=== PATIENT | female | born 1970 | race Caucasian/White ===

== ENCOUNTER 2016-09-30 08:14 | Emergency (ER) | payer OTHER ==
[~2016-09-30] VITALS: Ht 165.1 cm; Wt 115.5 kg
[~2016-09-30 08:14] MED LIST: AMLO-147 PO; ATEN-51 PO; BENA10TA48 PO; CALC200T PO; HYDR-3498 PO; NAPR-260 PO; NAPR-688 PO; TRAM-40 PO; TRAM50TA2 PO
[2016-09-30 08:17] VITALS: Ht 165.1 cm; Wt 115.5 kg
[2016-09-30] MEDS ORDERED: AZIT250T94 PO (08:40)
[2016-09-30] MEDS ORDERED: LORA5SOL5 PO (08:40)
[2016-09-30] MEDS ORDERED: FLUT9.9S NASAL (08:40)
--- NOTE | 2016-09-30 08:48 | ERD ---
ER Documentation Chief Complaint Date/Time DATE: 09/30/16 TIME: 08:45 Chief Complaint DOWLING, COUGH & CONGESTION X3 WKS, NO RELIEF W/OTC HPI Patient is a 46-year-old female who states she has had a cough with nasal congestion for 3 weeks. She has tried xymc-uns-wrqdrlk medications which have not helped. She denies any nausea or vomiting. Denies any chest pain or shortness of breath. Her symptoms are worse at night and the cough and nasal congestion makes it difficult for her to sleep. She thinks she may have had a fever 3 weeks ago when this started however fever has now subsided. Denies any hemoptysis, night sweats, or unplanned weight loss. ROS All systems reviewed and are negative except as per history of present illness. Medications Home Meds Active Scripts Fluticasone Propionate (Flonase Allergy Relief) 9.9 Ml [place].susp, 1 SPRAY NASAL BID, #1 BOTTLE TO EACH NOSTRIL Prov:ALICE RANDALL PA-C 09/30/16 Azithromycin* (Zithromax*) 250 Mg Tablet, 250 MG PO .VICENTE DIRECTED, #6 TAB TAKE 500 MG (2 TABS) THE FIRST DAY THEN 250 MG (1 TAB) DAYS 2-5 Prov:ALICE RANDALL PA-C 09/30/16 Loratadine* (Loratadine* Soln) 5 Mg/5 Ml Solution, 5 MG PO DAILY, #150 ML Prov:ALICE RANDALL PA-C 09/30/16 Hydrocodone Bit-Acetaminophen* ([place]ard*) 5-325 Mg Tab, 1 TAB PO Q6, #7 TAB Prov:MITCHELL MORALES DO 12/31/15 Naproxen* (Naproxen*) 500 Mg Tablet, 500 MG PO BID, #20 TAB Prov:MITCHELL MORALES DO 12/31/15 Tramadol HCl (Tramadol HCl) 50 Mg Tablet, 50 MG PO Q6, #15 TAB Prov:DENEEN SARMIENTO DO 11/10/15 Naproxen* (Naprosyn*) 500 Mg Tablet, 500 MG PO BID Y for PAIN AND/OR INFLAMMATION, #30 TAB Prov:DENEEN SARMIENTO DO 11/10/15 Reported Medications Calcium Carbonate* (Tums*) 500 Mg Tab.chew, 500 MG PO TID, TAB.CHEW 11/10/15 Tramadol Hcl* (Ultram*) 50 Mg Tablet, 50 MG PO Q6H Y for PAIN, TAB 11/10/15 Benazepril Hcl* (Benazepril Hcl*) 10 Mg Tablet, 10 MG PO DAILY, #30 TAB 11/10/15 Atenolol* (Atenolol*) 25 Mg Tablet, 25 MG PO DAILY, #30 TAB 11/10/15 Amlodipine Besylate* (Amlodipine Besylate*) 10 Mg Tablet, 10 MG PO DAILY, #30 TAB 11/10/15 Allergies Allergies: Coded Allergies: No Known Drug Allergies (Verified Allergy, Unknown, 07/03/14) PMhx/Soc History of Surgery: No Anesthesia Reaction: No Hx Neurological Disorder: Yes (cva with r sided deficiets) Hx Respiratory Disorders: No Hx Cardiac Disorders: No Hx Psychiatric Problems: No Hx Miscellaneous Medical Probl: No Hx Alcohol Use: No Hx Substance Use: No Hx Tobacco Use: Yes (10 cig/ day) FmHx Family History: No diabetes Physical Exam Vitals Vital Signs Date Time Temp Pulse Resp B/P Pulse Ox O2 Delivery O2 Flow Rate FiO2 09/30/16 08:17 97.8 78 20 116/66 96 Physical Exam General: well developed, well nourished, alert, nontoxic, no distress Head: normocephalic, atraumatic Neck: Supple, nontender, no lymphadenopathy, no midline tenderness Oropharynx: no tonsilar erythema or edema, uvula midline, no exudates, no kissing tonsils, no drooling Respiratory: Clear to auscaultation bilaterally, speaks in full sentences, no use of accesory muscles or labored breathing, no rales, ronchi, or wheezing Cardiovascular: RRR, No murmurs GI: soft, non tender, non distended, negative murphys sign, negative mcburneys point tenderness, no cva tenderness bilaterally, no rebound or guarding Back: no midline tenderness, no step offs or bony abnormalities, sensation to light touch in tact Procedures/MDM Patient presents with what is most likely viral bronchitis. Her vital signs are stable she is well-appearing and her examination is normal. However symptoms have been going on for over 3 weeks and she has already exhausted several alia-wgl-kthmdog medications including ibuprofen, DayQuil, NyQuil. Therefore I will give her a prescription for a Z-Luis as well as a Flonase nasal inhaler. Low suspicion for pneumonia. Recommended this patient follow up with her primary care doctor within 48 hours or return to the emergency room for any worsening of symptoms. However this time I do believe there is suitable for outpatient management. I answered all their questions and they agreed with the plan and were discharged home. Departure Diagnosis: Primary Impression: Bronchitis Condition: Stable Patient Instructions: Preventing Common Respiratory Infections Additional Instructions: Call your primary care doctor TOMORROW for an appointment during the next 1-2 days.See the doctor sooner or return here if your condition worsens before your appointment time. ALICE RANDALL PA-C Sep 30, 2016 08:48
== END 2016-09-30 09:06 | disposition home or self-care (01) ==
LOC: FTE 08:14
DX: J20.9 Acute bronchitis, unspecified (principal); F17.210 Nicotine dependence, cigarettes, uncomplicated
CPT/HCPCS: 99283

== ENCOUNTER 2017-05-28 11:43 | Emergency (ER) | payer OTHER ==
[~2017-05-28] VITALS: Wt 119.5 kg
[~2017-05-28 11:43] MED LIST changes: +AZIT250T94 PO; +FLUT9.9S NASAL; +LORA5SOL5 PO
--- NOTE | 2017-05-28 12:56 | RADRPT ---
PROCEDURE: XR Ankle. CLINICAL INDICATION: Pain TECHNIQUE: AP, oblique and lateral views of the left ankle were performed. COMPARISON: None. FINDINGS: Three views left ankle demonstrate no displaced fracture. No gross malalignment is seen. The ankle mortise is intact. The bones normally mineralized. There is soft tissue swelling along the latera l malleolus. IMPRESSION: No acute fracture dislocation. RPTAT: HH .Lc Campbell MD, MD Date Time Electronically viewed and signed by .Lc Campbell MD, on 05/28/2017 12:55 .W/
--- NOTE | 2017-05-28 12:59 | RADRPT ---
PROCEDURE: XR Foot. CLINICAL INDICATION: Pain TECHNIQUE: AP, lateral and oblique views of the left foot was obtained. The images were reviewed on a PACS workstation. COMPARISON: None. FINDINGS: Three views of the left foot demonstrate and oblique fracture through proximal phalanx of the fifth digit. This is only seen on the single view and confirmation of point tenderness in this region is r ecommended. Otherwise, no fractures are identified. No gross malalignment is seen. Joint spaces are well preserved. There is no erosions identified. The bones normally mineralized. Soft tissues are un remarkable. IMPRESSION: 1. Probable oblique fracture extending through the proximal phalanx of the fifth toe. This is only seen on the single view, and confirmation for point tenderness in this region is recommended. 2. Otherwise no fracture dislocation is seen RPTAT: HH .Lc Campbell MD, Date Time Electronically viewed and signed by .Lc Campbell MD, MD on 05/28/2017 12:58 .W/
--- NOTE | 2017-05-28 15:23 | RADRPT ---
PROCEDURE: US DVT. CLINICAL INDICATION: Left lower extremity swelling. TECHNIQUE: Multiple longitudinal and transverse images of the left lower extremity veins were obta ined with andre scale and color Doppler imaging. 2D grayscale measurements with compression, color D oppler flow, and augmentation was performed. COMPARISON: None. FINDINGS: The left common femoral, femoral and popliteal veins are patent and fully compressible. Color flow demonstrates normal filling of the vessel lumen. Normal waveforms are visualized and there is andree l response to augmentation. The calf veins are equally normal. IMPRESSION: No evidence of acute deep venous thrombosis of the left lower extremity. RPTAT: AAQQ .Robina Gamboa MD, MD Date Time Electronically viewed and signed by .Robina Gamboa MD, MD on 05/28/2017 15:23 .T/
[2017-05-28] MEDS ORDERED: NAPR-260 PO (15:31)
--- NOTE | 2017-05-28 17:40 | ERD ---
ER Documentation Chief Complaint Chief Complaint left ankle/foot swelling/pain since am HPI Patient is a 46-year-old female with a history of CVA with residual right sided weakness who presents to the ED for concerns of left ankle and foot swelling which the patient noticed that this morning. Patient states 2 weeks ago she did drop a heavy piece of wood onto her foot. Patient states she had minimal swelling however this morning upon waking up she noticed that she had significant swelling. Patient denies any falls. Patient denies any fevers or chills. Patient denies any chest pain, shortness of breath, headache, blurry vision, abdominal pain, nausea, vomiting or LOC. Patient denies any new weaknesses or difficulty speaking. Patient does admit to limited mobility and overall sedentary life since the time of her stroke. ROS All systems reviewed and are negative except as per history of present illness. Medications Home Meds Active Scripts Naproxen* (Naprosyn*) 500 Mg Tablet, 500 MG PO BID Y for PAIN AND/OR INFLAMMATION, #30 TAB Prov:DEANA WILKES PA-C 05/28/17 Fluticasone Propionate (Flonase Allergy Relief) 9.9 Ml [place].susp, 1 SPRAY NASAL BID, #1 BOTTLE TO EACH NOSTRIL Prov:ALICE RANDALL PA-C 09/30/16 Azithromycin* (Zithromax*) 250 Mg Tablet, 250 MG PO .VICENTE DIRECTED, #6 TAB TAKE 500 MG (2 TABS) THE FIRST DAY THEN 250 MG (1 TAB) DAYS 2-5 Prov:ALICE RANDALL PA-C 09/30/16 Loratadine* (Loratadine* Soln) 5 Mg/5 Ml Solution, 5 MG PO DAILY, #150 ML Prov:ALICE RANDALL PA-C 09/30/16 Hydrocodone Bit-Acetaminophen* ([place]*) 5-325 Mg Tab, 1 TAB PO Q6, #7 TAB Prov:MITCHELL MORALES DO 12/31/15 Naproxen* (Naproxen*) 500 Mg Tablet, 500 MG PO BID, #20 TAB Prov:MITCHELL MORALES DO 12/31/15 Tramadol HCl (Tramadol HCl) 50 Mg Tablet, 50 MG PO Q6, #15 TAB Prov:DENEEN SARMIENTO DO 11/10/15 Naproxen* (Naprosyn*) 500 Mg Tablet, 500 MG PO BID Y for PAIN AND/OR INFLAMMATION, #30 TAB Prov:DENEEN SARMIENTO DO 11/10/15 Reported Medications Calcium Carbonate* (Tums*) 500 Mg Tab.chew, 500 MG PO TID, TAB.CHEW 11/10/15 Tramadol Hcl* (Ultram*) 50 Mg Tablet, 50 MG PO Q6H Y for PAIN, TAB 11/10/15 Benazepril Hcl* (Benazepril Hcl*) 10 Mg Tablet, 10 MG PO DAILY, #30 TAB 11/10/15 Atenolol* (Atenolol*) 25 Mg Tablet, 25 MG PO DAILY, #30 TAB 11/10/15 Amlodipine Besylate* (Amlodipine Besylate*) 10 Mg Tablet, 10 MG PO DAILY, #30 TAB 11/10/15 Allergies Allergies: Coded Allergies: No Known Drug Allergies (Verified Allergy, Unknown, 07/03/14) PMhx/Soc History of Surgery: No Anesthesia Reaction: No Hx Neurological Disorder: Yes (cva with r sided deficit) Hx Respiratory Disorders: No Hx Cardiac Disorders: No Hx Psychiatric Problems: No Hx Miscellaneous Medical Probl: No Hx Alcohol Use: No Hx Substance Use: No Hx Tobacco Use: Yes (10 cig/ day) Smoking Status: Current some day smoker FmHx Family History: No diabetes Physical Exam Vitals Vital Signs Date Time Temp Pulse Resp B/P Pulse Ox O2 Delivery O2 Flow Rate FiO2 05/28/17 11:50 97.7 84 20 123/67 97 Physical Exam GENERAL: Well-developed, well-nourished female. Appears in no acute distress. HEAD: Normocephalic, atraumatic. EYES: Pupils are equally reactive bilaterally. EOMs grossly intact. No conjunctival erythema. ENT: Moist mucous membranes. No uvula deviation. No kissing tonsils. NECK: Supple. No meningismus. Normal range of motion of the neck. LUNG: Clear to auscultation bilaterally. No rhonchi, wheezing, rales or coarse breath sounds. HEART: Regular rate and rhythm. No murmurs, rubs or gallops. EXTREMITIES: Equal pulses bilaterally. No peripheral clubbing, cyanosis or edema. No unilateral leg swelling. NEUROLOGIC: Alert and oriented. Normal speech. Facial symmetry noted. Patient states this is a chronic finding after her CVA. Right-sided upper and lower extremity weakness noted. Again patient stated this is a chronic finding consistent with previous CVA. SKIN: Normal color. Warm and dry. No rashes or lesions. LEFT FOOT/ANKLE: 1+ swelling noted throughout the patient's lower extremity. No ecchymosis. Swelling noted over the lateral aspect of the ankle. Skin intact. Tender to palpation of the lateral ankle, lateral foot and fifth digit. Sensation intact to light touch. Neurovascularly intact. 2+ DP pulses. Procedures/MDM ED COURSE: The patient was stable throughout ED course. I kept the patient and/or family informed of laboratory and diagnostic imaging results throughout the ED course. DIAGNOSTIC IMAGING: Read by radiologist. Patient: FAISAL STEEN : 1970 Age: 46 Sex: F MR #: [id number] DOS: 05/28/17 1216 Ordering MD: DEANA WILKES PA-C Location: [facility] Room/Bed: PROCEDURE: XR Foot. CLINICAL INDICATION: Pain TECHNIQUE: AP, lateral and oblique views of the left foot was obtained. The images were reviewed on a PACS workstation. COMPARISON: None. FINDINGS: Three views of the left foot demonstrate and oblique fracture through proximal phalanx of the fifth digit. This is only seen on the single view and confirmation of point tenderness in this region is recommended. Otherwise, no fractures are identified. No gross malalignment is seen. Joint spaces are well preserved. There is no erosions identified. The bones normally mineralized. Soft tissues are unremarkable. IMPRESSION: 1. Probable oblique fracture extending through the proximal phalanx of the fifth toe. This is only seen on the single view, and confirmation for point tenderness in this region is recommended. 2. Otherwise no fracture dislocation is seen RPTAT: HH .Lc Campbell MD, Date Time Electronically viewed and signed by .Lc Campbell MD, MD on 05/28/2017 12:58 .W/ CC: DEANA WILKES PA-C Patient: FAISAL STEEN : 1970 Age: 46 Sex: F MR #: [id number] DOS: 05/28/17 1216 Ordering MD: DEANA WILKES PA-C Location: [facility] Room/Bed: PROCEDURE: XR Ankle. CLINICAL INDICATION: Pain TECHNIQUE: AP, oblique and lateral views of the left ankle were performed. COMPARISON: None. FINDINGS: Three views left ankle demonstrate no displaced fracture. No gross malalignment is seen. The ankle mortise is intact. The bones normally mineralized. There is soft tissue swelling along the lateral malleolus. IMPRESSION: No acute fracture dislocation. RPTAT: HH .Lc Campbell MD, Date Time Electronically viewed and signed by .Lc Campbell MD, on 05/28/2017 12:55 .W/ CC: DEANA WILKES PA-C Patient: FAISAL STEEN : 1970 Age: 46 Sex: F MR #: [id number] DOS: 05/28/17 1249 Ordering MD: DEANA WILKES PA-C Location: [facility] Room/Bed: PROCEDURE: US DVT. CLINICAL INDICATION: Left lower extremity swelling. TECHNIQUE: Multiple longitudinal and transverse images of the left lower extremity veins were obtained with andre scale and color Doppler imaging. 2D grayscale measurements with compression, color Doppler flow, and augmentation was performed. COMPARISON: None. FINDINGS: The left common femoral, femoral and popliteal veins are patent and fully compressible. Color flow demonstrates normal filling of the vessel lumen. Normal waveforms are visualized and there is normal response to augmentation. The calf veins are equally normal. IMPRESSION: No evidence of acute deep venous thrombosis of the left lower extremity. RPTAT: AAQQ .Robina Gamboa MD, MD Date Time Electronically viewed and signed by .Robina Gamboa MD, MD on 05/28/2017 15:23 .T/ CC: DEANA WILKES PA-C SPLINT APPLICATION: The patient was verbally consented at bedside prior to splint application. Patient was explained the risks, benefits and alternatives to this procedure. The patient was neurovascularly intact prior to and status post application of the splint. The patient tolerated the procedure well with no complications. Splint type: deon tape Extremity: left Indication: Probable oblique fracture extending through the proximal phalanx of the fifth toe. MEDICATIONS GIVEN: Patient tolerated medication well with no adverse reactions. Patient reported improvement in pain. MEDICAL DECISION MAKING: This is a 46-year-old female with a history of a CVA with residual right-sided weakness who presents to the ED with concerns of left lower leg swelling as well as left ankle pain and foot pain. Patient does report piece of wood falling on her foot 2 weeks ago. Patient states that she only noticed the swelling this morning. Vital signs were reviewed. Patient was afebrile. Patient was not hypoxic. X-ray imaging of the foot showed concerns of the fifth proximal phalanx fracture. Deon tape was placed by remediation technician. Left ankle series was unremarkable except for soft tissue swelling over the lateral malleolus. Doppler study was negative for DVT. At this time, patient presentation is most consistent with toe fracture and lower leg swelling. Patient was advised to elevate her lower extremity. Patient was advised that she will need to follow-up with the assurance specialist and/or obtain an MRI and an outpatient basis given that any ligament and tendon injuries cannot be ruled out this time. Low suspicion for ankle dislocation, tibia fracture, fibula fracture, ankle fracture, tarsal bone fracture, metatarsal fracture, gout , septic joint, DVT, compartment syndrome, plantar fasciitis, CVA. PRESCRIPTIONS: Naproxen DISCHARGE: At this time, patient is stable for discharge and outpatient management. Patient was given a copy of all imaging studies obtained today. RICE therapy and ROM exercises were advised to avoid stiffness. I have instructed the patient to follow-up with his/her primary care physician in 1-2 days. I have discussed with the patient the possibility of needing to see an assurance specialist for further workup and imaging if the pain persists. I have instructed the patient to promptly return to the ER for any new or worsening symptoms including increased pain, swelling, redness, warmth or fever. The patient and/or family expressed understanding of and agreement with this plan. All questions were answered. Home care instructions were provided. Disclaimer: Inadvertent spelling and grammatical errors are likely due to EHR/ dictation software use and do not reflect on the overall quality of patient care. Also, please note that the electronic time recorded on this note does not necessarily reflect the actual time of the patient encounter. Departure Diagnosis: Primary Impression: Toe fracture, left Encounter type: initial encounter Toe: lesser toe Fracture type: closed Phalanx: unspecified phalanx Fracture alignment: nondisplaced Qualified Code : S92.505A - Closed nondisplaced fracture of phalanx of lesser toe of left foot , unspecified phalanx, initial encounter Additional Impression: Left leg swelling Condition: Stable Patient Instructions: Fracture, Toe [Closed] Additional Instructions: Follow-up with an assurance specialist on an outpatient basis. Call your primary care doctor TOMORROW for an appointment during the next 1-2 days.See the doctor sooner or return here if your condition worsens before your appointment time. DEANA WILKES PA-C May 28, 2017 17:40
== END 2017-05-28 15:54 | disposition home or self-care (01) ==
LOC: FTE 11:43
DX: S92.505A Nondisplaced unspecified fracture of left lesser toe(s), initial encounter for closed fracture (principal); F17.210 Nicotine dependence, cigarettes, uncomplicated; W20.8XXA Other cause of strike by thrown, projected or falling object, initial encounter; Y92.9 Unspecified place or not applicable
CPT/HCPCS: 73610; 73630; 93971; Z7502